=== PATIENT | male | born 1990 | race Hispanic/Latino ===

== ENCOUNTER 2021-03-30 14:59 | Emergency (ER) | payer SELFPAY ==
[~2021-03-30] VITALS: Ht 182.9 cm; Wt 93.2 kg
[2021-03-30 15:09] VITALS: BP 150/75
--- NOTE | 2021-03-30 15:52 | REP ---
INDICATION: injury, decreased ROM, pain COMPARISON: None. TECHNIQUE: AP, lateral, bilateral oblique views of the left elbow. FINDINGS: No acute fracture or dislocation is appreciated. Joint spaces and surrounding soft tissues appear normal. Lateral view demonstrates normal positioning to the anterior and posterior fat pads without evidence for effusion/hemarthrosis. No subcutaneous emphysema or foreign body identified. IMPRESSION: Normal elbow radiographs. <Electronically signed by Michel Eliazbeth > 03/30/21 [id number]
--- NOTE | 2021-03-30 15:53 | REP ---
INDICATION: injury, decreased ROM, pain. COMPARISON: None. TECHNIQUE: Three views of the left shoulder are provided. FINDINGS: The left glenohumeral and acromioclavicular joints are normally aligned. Periarticular soft tissues are unremarkable. No fracture or subluxation is seen. IMPRESSION: Negative left shoulder radiographs. <Electronically signed by Mac Willis > 03/30/21 [id number]
== END 2021-03-30 16:54 | disposition left against medical advice (07) ==
LOC: M ED 14:59
DX: Z53.21 Procedure and treatment not carried out due to patient leaving prior to being seen by health care provider (principal)

== ENCOUNTER → 2021-07-17 | Outpatient (CLI) | payer OTHER ==
--- NOTE | 2021-07-17 12:36 | REPVR ---
PROCEDURE INFORMATION: Exam: MR Head Without Contrast Exam date and time: 07/17/2021 11:56 AM Age: 31 years old Clinical indication: Headache. TECHNIQUE: Imaging protocol: MR of the head without contrast. COMPARISON: No relevant prior studies available. FINDINGS: Brain: Normal. No acute infarct. No hemorrhage. No significant white matter disease. No edema. Cerebral ventricles: Normal. No ventriculomegaly. Bones/joints: Unremarkable. Paranasal sinuses: Normal as visualized. No acute sinusitis. Mastoid air cells: Normal as visualized. No mastoid effusion. Orbital cavity: Unremarkable. Soft tissues: Unremarkable. IMPRESSION: No acute findings. Electronically signed by: Ferdinand Ponce On 07/17/2021 12:36:20 PM
== END ==
LOC: M RAD 10:42
PROVIDERS: ATTEND Physician Assistant
DX: R51.9 Headache, unspecified (principal)